=== PATIENT | male | born 1945 | race Asian ===

== ENCOUNTER 2018-11-27 07:41 | Day surgery (SDC) | payer MEDICARE, OTHER ==
[2018-11-27] MEDS: DICLOFENAC 0.1% 2.5 ML OPH OPER (08:21)
[2018-11-27] MEDS: MOXIFLOXACIN 0.5% 3 ML OPH OPER (08:21)
[2018-11-27] MEDS: CYCLOPENTOLATE/PHENYLEPH 2 ML OPH OPER (08:22)
[2018-11-27] MEDS: TROPICAMIDE 1% 15 ML OPH OPER (08:22)
[2018-11-27] MEDS: SOD CHLORIDE 0.9% 1,000 ML IV (08:22)
[2018-11-27] MEDS ORDERED: PROCHLORPERAZINE 10 MG INJ IV (10:00)
[2018-11-27] MEDS ORDERED: HYDROmorphONE 1 MG/5 ML IV SYRINGE IV (10:00)
[2018-11-27] MEDS ORDERED: OXYCODONE/ACETAMINOPHEN (5/325) TAB PO (10:00)
[2018-11-27] MEDS ORDERED: FENTAnyl 50 MCG/ML VIAL IV (10:00)
[2018-11-27] MEDS ORDERED: DIPHENHYDRAMINE 50 MG INJ IV (10:00)
[2018-11-27] MEDS ORDERED: MEPERIDINE 25 MG INJ IV (10:00)
[2018-11-27] MEDS ORDERED: ONDANSETRON 4 MG INJ IV (10:00)
[2018-11-27] MEDS ORDERED: LIDOCAINE 4% (MPF) 5 ML INJ (10:18)
[2018-11-27] MEDS: DEXAMETHASONE 4 MG/ML 1 ML INJ (10:18)
[2018-11-27] MEDS: CEFAZOLIN 1 GM INJ (10:18)
[2018-11-27] MEDS ORDERED: NA HYALURONATE/CHONDROITIN 0.5 ML SYG (10:18)
[2018-11-27] MEDS: CARBACHOL 0.01% 1.5 ML OPH INJ (10:18)
[2018-11-27] MEDS ORDERED: MIDAZOLAM 1 MG/ML 2 ML INJ (10:30)
[2018-11-27] MEDS ORDERED: PROPOFOL 20 ML (10:38)
[2018-11-27] MEDS ORDERED: FENTAnyl 50 MCG/ML VIAL (10:38)
[2018-11-27] MEDS ORDERED: LIDOCAINE 2% (SDV) 5 ML INJ (10:38)
== END 2018-11-27 12:24 | disposition home or self-care (01) ==
LOC: SDS 07:41
DX: H25.11 Age-related nuclear cataract, right eye (principal); I10 Essential (primary) hypertension; E78.5 Hyperlipidemia, unspecified; N52.9 Male erectile dysfunction, unspecified; Z88.2 Allergy status to sulfonamides
CPT/HCPCS: 66984

== ENCOUNTER 2019-01-08 06:00 | Day surgery (SDC) | payer MEDICARE, OTHER ==
[2019-01-08] MEDS: DICLOFENAC 0.1% 2.5 ML OPH OPER (06:36)
[2019-01-08] MEDS: MOXIFLOXACIN 0.5% 3 ML OPH OPER (06:37)
[2019-01-08] MEDS: CYCLOPENTOLATE/PHENYLEPH 2 ML OPH OPER (06:37)
[2019-01-08] MEDS: TROPICAMIDE 1% 15 ML OPH OPER (06:37)
[2019-01-08] MEDS: SOD CHLORIDE 0.9% 1,000 ML IV (06:44)
[2019-01-08] MEDS ORDERED: FENTAnyl 50 MCG/ML VIAL (07:16)
[2019-01-08] MEDS ORDERED: MIDAZOLAM 1 MG/ML 2 ML INJ (07:16)
[2019-01-08] MEDS ORDERED: ONDANSETRON 4 MG INJ IV (07:30)
[2019-01-08] MEDS ORDERED: LABETALOL HCL 20MG INJ IV (07:30)
[2019-01-08] MEDS ORDERED: OXYCODONE/ACETAMINOPHEN (5/325) TAB PO ×2 (07:30)
[2019-01-08] MEDS ORDERED: FENTAnyl 50 MCG/ML VIAL IV ×2 (07:30)
[2019-01-08] MEDS ORDERED: LIDOCAINE 2% (SDV) 5 ML INJ (07:44)
[2019-01-08] MEDS ORDERED: PROPOFOL 20 ML (07:44)
[2019-01-08] MEDS: CARBACHOL 0.01% 1.5 ML OPH INJ (07:57)
[2019-01-08] MEDS: EPINEPHrine 1 MG INJ (07:57)
[2019-01-08] MEDS: CEFAZOLIN 1 GM INJ (07:57)
[2019-01-08] MEDS: DEXAMETHASONE 4 MG/ML 1 ML INJ (07:57)
[2019-01-08] MEDS: GENTAMICIN 80 MG INJ (07:57)
[2019-01-08] MEDS: LIDOCAINE 4% (MPF) 5 ML INJ (07:58)
[2019-01-08] MEDS: NA HYALURONATE/CHONDROITIN 0.5 ML SYG (07:58)
[2019-01-08] MEDS: TETRACAINE 0.5% 4 ML OPH (07:59)
== END 2019-01-08 09:30 | disposition home or self-care (01) ==
LOC: SDS 06:00
DX: H25.12 Age-related nuclear cataract, left eye (principal); I10 Essential (primary) hypertension
CPT/HCPCS: 66984